=== PATIENT | male | born 1970 | race Caucasian/White ===

== ENCOUNTER 2019-01-06 10:19 | Emergency (ER) | payer BC ==
[2019-01-06] MEDS ORDERED: DIAZEPAM 10 MG/2 ML INJ SYRINGE ONE (10:59)
[2019-01-06 11:05] LABS: Absolute Lymphocytes (CBC) 3.3 K/uL (0.7-4.9); Absolute Neutrophil 7.3 K/uL (1.8-8.0); Basophils % 0.8 % (0-1.3); Eosinophils % 0.4 % (0-4.4); Hematocrit 52.3 % (39.6-49.0); Lymphocytes % 28.3 % (15.3-44.8); MPV 8.4 fL (7.6-11.3); Monocytes % 8.5 % (3.3-12.3); RBC Red Blood Cell Count 5.43 M/uL (4.33-5.43)
--- NOTE | 2019-01-06 11:05 | RAD REPORT ---
EXAM DESCRIPTION: CT - Head Brain Wo Cont - 01/06/2019 10:57 am CLINICAL HISTORY: CONFUSED Headache, drowsiness COMPARISON: No comparisons TECHNIQUE: All CT scans are performed using dose optimization technique as appropriate and may inclu de automated exposure control or mA/KV adjustment according to patient size. FINDINGS: No intracranial hemorrhage, hydrocephalus or extra-axial fluid collection.6 mm hypodensity seen in the left basal ganglia which is suspicious for a small lacunar infarct, age undetermined.No areas of brain edema or evidence of midline shift. The paranasal sinuses and mastoids are clear. The calvarium is intact. IMPRESSION: No acute intracranial abnormality. 6 mm hypodensity in the left basal ganglia is most compatible with a small lacunar infarct of undeter mined age. MR imaging of the brain could be obtained for further workup if clinically indicated.
[2019-01-06 11:08] LABS: Protime INR 1.03
--- NOTE | 2019-01-06 11:29 | RAD REPORT ---
EXAM DESCRIPTION: RAD - Chest Single View - 01/06/2019 11:20 am CLINICAL HISTORY: CONGESTION Chest pain. COMPARISON: Chest Single View dated 08/16/2017; CHEST PA AND LAT 2 VIEW dated 01/18/2012 FINDINGS: Portable technique limits examination quality. The lungs are grossly clear. The heart is normal in size. No displaced fractures. IMPRESSION: No acute intrathoracic process suspected.
[2019-01-06] MEDS ORDERED: NA CHLORIDE 0.9% 1,000 ML ONE (11:35)
--- NOTE | 2019-01-06 12:35 | EDPHYS ---
Physician Documentation [facility] Name: Patricio Pearson Age: 48 yrs Sex: Male : 1970 Arrival Date: 01/06/2019 Time: 10:22 Bed 4 Private MD: Tyrone Gonzalez E ED Physician Richard Ventura HPI: 01/06 10:53 This 48 yrs old Male presents to ER via Ambulatory with complaints of Altered ma2 Mental Status. 10:53 The patient presents with agitation, confusion. Onset: The symptoms/episode ma2 began/occurred gradually, 3 day(s) ago. Possible causes: benzodiazepine withdrawal . Associated signs and symptoms: Pertinent negatives: abdominal pain, blurred vision, confusion, diaphoresis. Current symptoms: In the emergency department the patient's symptoms are unchanged from the initial presentation. Historical: - Allergies: 10:25 No Known Allergies; sv - PMHx: 10:25 Anxiety; Kidney stones; sv - PSHx: 10:25 None; sv - Immunization history:: Adult Immunizations unknown. - Social history:: Patient uses xanax 3 times a day for anxiety for the last 18 months stopped 1 week ago \E\, Patient/guardian denies using alcohol, street drugs, IV drugs, The patient lives with family, Smoking status: Patient uses tobacco products, smokes one-half pack cigarettes per day. - Family history:: not pertinent. - Ebola Screening: : No symptoms or risks identified at this time. ROS: 10:53 Constitutional: Negative for fever, chills, and weight loss. ma2 10:53 Neuro: Positive for altered mental status, Negative for gait disturbance, loss of consciousness, numbness. 10:53 Psych: Positive for anxiety, Negative for alcohol dependence. 10:53 All other systems are negative. Exam: 10:53 Constitutional: This is a well developed, well nourished patient who is awake, alert, ma2 and in no acute distress. Head/Face: Normocephalic, atraumatic. Eyes: Pupils equal round and reactive to light, extra-ocular motions intact. Lids and lashes normal. Conjunctiva and sclera are non-icteric and not injected. Cornea within normal limits. Periorbital areas with no swelling, redness, or edema. ENT: Nares patent. No nasal discharge, no septal abnormalities noted. Tympanic membranes are normal and external auditory canals are clear. Oropharynx with no redness, swelling, or masses, exudates, or evidence of obstruction, uvula midline. Mucous membranes moist. Neck: Trachea midline, no thyromegaly or masses palpated, and no cervical lymphadenopathy. Supple, full range of motion without nuchal rigidity, or vertebral point tenderness. No Meningismus. Chest/axilla: Normal chest wall appearance and motion. Nontender with no deformity. No lesions are appreciated. Cardiovascular: Regular rate and rhythm with a normal S1 and S2. No gallops, murmurs, or rubs. Normal PMI, no JVD. No pulse deficits. Respiratory: Lungs have equal breath sounds bilaterally, clear to auscultation and percussion. No rales, rhonchi or wheezes noted. No increased work of breathing, no retractions or nasal flaring. Abdomen/GI: Soft, non-tender, with normal bowel sounds. No distension or tympany. No guarding or rebound. No evidence of tenderness throughout. Back: No spinal tenderness. No costovertebral tenderness. Full range of motion. Skin: Warm, dry with normal turgor. Normal color with no rashes, no lesions, and no evidence of cellulitis. MS/ Extremity: Pulses equal, no cyanosis. Neurovascular intact. Full, normal range of motion. 10:53 Neuro: Orientation: is normal, to person, place, time \T\ situation. Mentation: is normal, Cerebellar function: is grossly normal, oriented x 4 however inappropriate and confused restless and tachycardic . Vital Signs: 10:50 BP 130 / 104; Pulse 122; Resp 24; Pulse Ox 98% on R/A; ph 11:30 BP 112 / 99; Pulse 114; Resp 18; Pulse Ox 99% on R/A; ph 11:49 BP 144 / 107; Pulse 78; Resp 20; Pulse Ox 99% on R/A; ph 13:01 BP 149 / 98; Pulse 74; Resp 18; Temp 98.0; Pulse Ox 99% on R/A; ph MDM: 10:26 Patient medically screened. ma2 10:53 Differential Diagnosis: electrolyte abnormality, hypoglycemia, intracranial bleed, ma2 volume depletion, likely xanax withdrawal . 12:32 Data reviewed: vital signs, nurses notes. Counseling: I had a detailed discussion with ma2 the patient and/or guardian regarding: the historical points, exam findings, and any diagnostic results supporting the discharge/admit diagnosis, the presence of at least one elevated blood pressure reading (>120/80) during this emergency department visit, the need for outpatient follow up. Response to treatment: the patient's symptoms have resolved after treatment. ED course: patient is now ao x 4 his pulse is back ot 60 he is back to normal has no tremor, his earlier symptoms were likely d/t xanax withdrawal delirium, he want to go home will give him valium to wean him off xanax and prescribe and new anxiety medicine . 01/06 10:29 Order name: Urine Culture [facility] 01/06 10:29 Order name: C-Reactive Protein [facility] 01/06 10:29 Order name: Basic Metabolic Panel [facility] 01/06 10:29 Order name: Blood Culture Adult (2) [facility] 01/06 10:29 Order name: CBC with Diff [facility] 01/06 10:29 Order name: Ckmb [facility] 01/06 10:29 Order name: CPK [facility] 01/06 10:29 Order name: Lactate; Complete Time: 12:37 [facility] 01/06 10:29 Order name: LFT's [facility] 01/06 10:29 Order name: Lipase [facility] 01/06 10:29 Order name: Procalcitonin [facility] 01/06 10:29 Order name: Protime (+inr); Complete Time: 12:00 [facility] 01/06 10:29 Order name: Ptt, Activated; Complete Time: 12:00 [facility] 01/06 10:29 Order name: Troponin (emerg Dept Use Only) [facility] 01/06 10:29 Order name: Chest Single View XRAY; Complete Time: 12:00 [facility] 01/06 10:29 Order name: Accucheck; Complete Time: 11:07 [facility] 01/06 10:29 Order name: Cardiac monitoring; Complete Time: 11: [facility] 01/06 10:29 Order name: EKG - Nurse/Tech; Complete Time: 11:07 [facility] 01/06 10:29 Order name: CT Head Brain wo Cont; Complete Time: 12:00 [facility] 01/06 10:30 Order name: C-Reactive Protein [facility] 01/06 10:30 Order name: Basic Metabolic Panel [facility] 01/06 10:30 Order name: Blood Culture [facility] 01/06 10:30 Order name: CBC with Automated Diff; Complete Time: 12:00 [facility] 01/06 10:30 Order name: CKMB Creatine Kinase MB [facility] 01/06 10:30 Order name: Creatine Phosphokinase [facility] 01/06 11:31 Order name: Glucose, Ancillary Testing [facility] 01/06 10:29 Order name: IV Saline Lock - Large Bore; Complete Time: 11:07 [facility] 01/06 10:29 Order name: Labs collected and sent; Complete Time: 11:07 [facility] 01/06 10:29 Order name: O2 Per Protocol; Complete Time: 11: [facility] 01/06 10:29 Order name: O2 Sat Monitoring; Complete Time: 11: [facility] Administered Medications: 10:55 Drug: Valium 10 mg Route: IVP; Site: right antecubital; ph 11:30 Follow up: Response: No adverse reaction; Marked relief of symptoms ph 11:45 Drug: NS 0.9% 1000 ml Route: IV; Rate: 1000 ml; Site: right antecubital; ph 13:03 Follow up: Response: No adverse reaction; IV Status: Completed infusion ph Disposition: 01/06/19 12:34 Discharged to Home. Impression: Anxiety disorder, unspecified, Underdosing of benzodiazepines. - Condition is Stable. - Discharge Instructions: Generalized Anxiety Disorder. - Prescriptions for buspirone 5 mg Oral tablet - take 1 tablet by ORAL route 3 times per day; 60 tablet. Valium 5 mg Oral Tablet - take 1 tablet by ORAL route every 8 hours As needed; 20 tablet. - Work release form, Medication Reconciliation Form, Thank You Letter, Antibiotic Education, Prescription Opioid Use form. - Follow up: Private Physician; When: Tomorrow; Reason: Continuance of care. Signatures: [facility] Sheron Pabon RN RN sv Hall, Patricia, RN RN Richard Ventura MD MD ma2 Corrections: (The following items were deleted from the chart) 13:03 12:34 01/06/2019 12:34 Discharged to Home. Impression: Anxiety disorder, unspecified; ph Underdosing of benzodiazepines. Condition is Stable. Forms are Medication Reconciliation Form, Thank You Letter, Antibiotic Education, Prescription Opioid Use. Follow up: Private Physician; When: Tomorrow; Reason: Continuance of care. ma2
--- NOTE | 2019-01-06 12:35 | ER ---
Nurse's Notes [facility] Name: Patricio Pearson Age: 48 yrs Sex: Male : 1970 Arrival Date: 01/06/2019 Time: 10:22 Bed 4 Private MD: Tyrone Gonzalez E Diagnosis: Anxiety disorder, unspecified;Underdosing of benzodiazepines Presentation: 01/06 10:24 Presenting complaint: Brother stated that he works with him and he is altered. He is sv walking to the side and "not acting right.". Transition of care: patient was not received from another setting of care. Onset of symptoms is unknown. Care prior to arrival: None. 10:24 Method Of Arrival: Ambulatory sv 10:24 Acuity: GREG 2 sv 11:46 Risk Assessment: Do you want to hurt yourself or someone else? Patient reports no ph desire to harm self or others. Initial Sepsis Screen: Does the patient meet any 2 criteria? No. Patient's initial sepsis screen is negative. Does the patient have a suspected source of infection? No. Patient's initial sepsis screen is negative. Historical: - Allergies: 10:25 No Known Allergies; sv - PMHx: 10:25 Anxiety; Kidney stones; sv - PSHx: 10:25 None; sv - Immunization history:: Adult Immunizations unknown. - Social history:: Patient uses xanax 3 times a day for anxiety for the last 18 months stopped 1 week ago \\E\\, Patient/guardian denies using alcohol, street drugs, IV drugs, The patient lives with family, Smoking status: Patient uses tobacco products, smokes one-half pack cigarettes per day. - Family history:: not pertinent. - Ebola Screening: : No symptoms or risks identified at this time. Screenin:45 Abuse screen: Denies threats or abuse. Denies injuries from another. Nutritional ph screening: No deficits noted. Tuberculosis screening: No symptoms or risk factors identified. Fall Risk None identified. Assessment: 10:30 General: Appears distressed, uncomfortable, slender, Behavior is cooperative, anxious, ph restless. Pain: Denies pain. Neuro: Level of Consciousness is awake, obeys commands, Oriented to person, place, Moves all extremities. Gait is unsteady, Speech is slurred, tremors noted to petra arms. 10:30 Cardiovascular: Capillary refill < 3 seconds in bilateral fingers Patient's skin is ph warm and dry. Respiratory: Airway is patent Respiratory effort is even, unlabored, Respiratory pattern is regular, tachypnea. GI: No signs and/or symptoms were reported involving the gastrointestinal system. Patient currently denies abdominal pain, diarrhea, nausea, vomiting. Derm: Skin is intact, Skin is pink, warm \\T\\ dry. Musculoskeletal: Circulation, motion, and sensation intact. Range of motion: intact in all extremities. 11:00 Reassessment: Patient appears in no apparent distress at this time. Patient is alert, ph oriented x 3, equal unlabored respirations, skin warm/dry/pink. Pt medicated prior to CT, tremors and difficulty speaking noted to improved considerably. 11:50 Reassessment: Patient appears in no apparent distress at this time. Patient and/or ph family updated on plan of care and expected duration. Pain level reassessed. Patient is alert, oriented x 3, equal unlabored respirations, skin warm/dry/pink. 13:00 Reassessment: Patient appears in no apparent distress at this time. Patient and/or ph family updated on plan of care and expected duration. Pain level reassessed. Patient is alert, oriented x 3, equal unlabored respirations, skin warm/dry/pink. Pt d/c home w/ prescription for valium, instructed to follow up w/ PCP. Vital Signs: 10:50 BP 130 / 104; Pulse 122; Resp 24; Pulse Ox 98% on R/A; ph 11:30 BP 112 / 99; Pulse 114; Resp 18; Pulse Ox 99% on R/A; ph 11:49 BP 144 / 107; Pulse 78; Resp 20; Pulse Ox 99% on R/A; ph 13:01 BP 149 / 98; Pulse 74; Resp 18; Temp 98.0; Pulse Ox 99% on R/A; ph ED Course: 10:22 Patient arrived in ED. mr 10:22 Tyrone Gonzalez MD is Private Physician. mr 10:25 Triage completed. sv 10:26 Lisy Lira, RN is Primary Nurse. iw 10:26 Richard Ventura MD is Attending Physician. ma2 10:49 EKG done, by turbine technician. reviewed by Richard Ventura MD. at1 10:50 Inserted saline lock: 20 gauge in right antecubital area, using aseptic technique. ph 10:58 CT Head Brain wo Cont In Process Unspecified. EDMS 11:10 X-ray completed. Portable x-ray completed in exam room. Patient tolerated procedure jr1 well. 11:12 Chest Single View XRAY In Process Unspecified. EDMS 11:45 Patient has correct armband on for positive identification. Placed in gown. Bed in low ph position. Call light in reach. Side rails up X2. gambling monitor on. Pulse ox on. NIBP on. Warm blanket given. 11:46 Arm band placed on. ph 11:52 Primary Nurse role handed off by Lisy Lira, RN ph 11:52 Edie Terrell, RN is Primary Nurse. ph 13:01 No provider procedures requiring assistance completed. IV discontinued, intact, ph bleeding controlled, No redness/swelling at site. Pressure dressing applied. Administered Medications: 10:55 Drug: Valium 10 mg Route: IVP; Site: right antecubital; ph 11:30 Follow up: Response: No adverse reaction; Marked relief of symptoms ph 11:45 Drug: NS 0.9% 1000 ml Route: IV; Rate: 1000 ml; Site: right antecubital; ph 13:03 Follow up: Response: No adverse reaction; IV Status: Completed infusion ph Outcome: 12:34 Discharge ordered by MD. durham 13:02 Discharged to home ambulatory. ph 13:02 Condition: improved 13:02 Discharge instructions given to patient, Instructed on discharge instructions, follow up and referral plans. medication usage, Demonstrated understanding of instructions, follow-up care, medications, Prescriptions given X 2. 13:03 Patient left the ED. ph Signatures: Dispatcher [employer] [facility] Sheron Pabon, RN DEBBIE FarmerOfelia Jennifer jr1 Lisy Lira, DEBBIE LEWIS Rose [place]mond[place], sales promotion representative EKG Tat1 Edie Terrell RN RN Richard Ventura MD MD ma2 Corrections: (The following items were deleted from the chart) 12:33 10:30 Neuro: Level of Consciousness is awake, obeys commands, Oriented to person, ph place, Moves all extremities. Gait is unsteady, Speech is slurred, . ph
[2019-01-06 12:57] LABS: ALT/SGPT 47 U/L (12-78); AST/SGOT 28 U/L (15-37); Albumin 4.1 g/dL (3.4-5.0); Alkaline Phosphatase 118 U/L (45-117); BUN Blood Urea Nitrogen 14 mg/dL (7-18); Bicarbonate 22 mmol/L (21-32); Bilirubin Direct 0.1 mg/dL (0-0.2); Bilirubin Total 0.7 mg/dL (0.2-1.0); C-Reactive Protein < 2.90 mg/L (<3.00); Creatine Phosphokinase 53 U/L (39-308); Glucose Level 128 mg/dL (74-106); Lipase 73 U/L (73-393); Potassium 3.9 mmol/L (3.5-5.1); Protein, Total 7.6 g/dL (6.4-8.2); Sodium Level 139 mmol/L (136-145); Troponin (Emerg Dept Use Only) < 0.02 ng/mL (0.0-0.045)
[2019-01-06 13:10] VITALS: O2SAT 99
[2019-01-06 13:12] VITALS: BP 149/98; TEMP 98
--- NOTE | 2019-01-07 07:48 | EKG ---
Test Date: 2019-01-06 Test Time: 10:41:53 Senior Java Web Developer: FREDDY MEASUREMENT RESULTS: Intervals: Rate: 110 IA: 114 QRSD: 68 QT: 320 QTc: 433 [place]: P: 81 IA: 114 QRS: 85 T: 74 INTERPRETIVE STATEMENTS: Sinus tachycardia Otherwise normal ECG Compared to ECG 08/17/2017 07:55:27 Sinus rhythm no longer present Electronically Signed On 01-07-19 07:47:48 CDT by Davis Nance
== END 2019-01-06 13:03 | disposition home or self-care (01) ==
LOC: ER 10:19
DX: F41.9 Anxiety disorder, unspecified (principal); T42.4X6A Underdosing of benzodiazepines, initial encounter; Y92.9 Unspecified place or not applicable; Z72.0 Tobacco use; F17.210 Nicotine dependence, cigarettes, uncomplicated
CPT/HCPCS: 36415; 70450; 71045; 80048; 80076; 82550; 82553; 82962; 83605; 83690; 84145; 84484; 85025; 85610; 85730; 86140; 87040; 93005; 96361; 96374; 99284; J3360; J7030

== ENCOUNTER 2021-11-16 10:48 | Emergency (ER) | payer BC ==
--- OUTSIDE RECORDS SUMMARY | 2021-11-16 10:51 | XMS REPORT | Continuity of Care Document ---
:1970 [facility] t Address [address] [place] [address] Care Team Providers Name Role Phone Lisa E Primary Care Physician DERICK Attending Clinician Unavailable Doctor Unassigned, Name Attending Clinician Unavailable Lolis LEWIS Attending Clinician Unavailable Only, Db Test Attending Clinician Unavailable Markus HARRINGTON Attending Clinician MARKUS Attending Clinician Unavailable Frank LEWIS, T Attending Clinician Unavailable Didi PERSAUD, J Attending Clinician Shelly TOLBERT Attending Clinician Unavailable Provider, Db Urgent Care Attending Clinician Unavailable MARTINE Attending Clinician Unavailable Rc HUANG Attending Clinician Unavailable Nancie CARDONA Attending Clinician Unavailable BEATRIZ Attending Clinician Unavailable DERICK Admitting Clinician Unavailable BEATRIZ Admitting Clinician Unavailable Payers Payer Name Policy Type Policy Number Effective Date Expiration Date Beth wilson [facility] [id number] 2017 00:00:00 Problems Condition Condition Condition Status Onset Resolution Last Treating Co mments Source Name Details Category Date Date Treatment Clinician Date Infection Infection Disease Active 2020- Uni vers 8-25 ity of 00:00: [address] Blister of Blister of Disease Active 2020- U nivers groin with groin with 8-21 it y of infection [place] [address] [place] [address] Critical Critical Disease Active 2019- Unive rs lower limb lower limb 8-04 it y of ischemia ischemia 00:00: [address] Pain of Pain of Disease Active 2019 Overview: Univ ers lower lower 8-04 Formatt[place] ity of extremity, extremity, 00:00: g of this [place] unspecifie unspecifie 00 note Me dical d d might be Branch laterality laterality different from the original. Added automatic ally from request for surgery [id number] Allergies, Adverse Reactions, Alerts Allergy Allergy Status Severity Reaction(s) Onset Inactive Treating Comm ents Source Name Type Date Date Clinician NO KNOWN Drug Active Univers ALLERGIE Class ity of S [place] [facility] Social History Social Habit Start Date Stop Date Quantity Comments Source Exposure to Not sure [facility] SARS-CoV-2 (event) Medica l Branch Tobacco use and 2019-09-21 2019-09-21 Never used [facility] exposure 00:00:00 00:00:00 Medical Branch Sex [birth year] [facility] 00:00:00 00:00:00 Medical Branch Smoking Status Start Date Stop Date Source Current every day smoker 2019-09-21 00:00[facility]00 [facility] Medications Ordered Filled Start Stop Current Ordering Indication Dosage Frequency Signature Comments Components Source Medication Medication Date Date Medication? Clinician (SIG) Name Name atorvastati 2020-0 Yes 40mg Take 1 Univ ers n 40 mg 9-28 tablet by ity of tablet 00:00: mouth at [place] [address] bedtime. Medical Branch metoprolol 2020-0 Yes [id number] 50mg Take 1 U nivers tartrate 50 9-28 tablet by ity of mg tablet 00:00: mouth 2 [place] (two) Medical times Branch daily. atorvastati 2020-0 Yes 40mg Take 1 Univ ers n 40 mg 9-28 tablet by ity of tablet 00:00: mouth at [place] [address] bedtime. Medical Branch metoprolol 2020-0 Yes [id number] 50mg Take 1 U nivers tartrate 50 9-28 tablet by ity of mg tablet 00:00: mouth 2 [place] (two) Medical times Branch daily. atorvastati 2020-0 Yes 40mg Take 1 Univ ers n 40 mg 9-28 tablet by ity of tablet 00:00: mouth at [place] [address] bedtime. Medical Branch metoprolol 2020-0 Yes [id number] 50mg Take 1 U nivers tartrate 50 9-28 tablet by ity of mg tablet 00:00: mouth 2 [place] (two) Medical times Branch daily. atorvastati 2020-0 Yes 40mg Take 1 Univ ers n 40 mg 9-28 tablet by ity of tablet 00:00: mouth at [place] 00 bedtime. Medical Branch metoprolol 2020-0 Yes [id number] 50mg Take 1 U nivers tartrate 50 9-28 tablet by ity of mg tablet 00:00: mouth 2 (two) Medical times Branch daily. atorvastati 2020-0 Yes 40mg Take 1 Univ ers n 40 mg 9-28 tablet by ity of tablet 00:00: mouth at [place] 00 bedtime. Medical Branch metoprolol 2020-0 Yes [id number] 50mg Take 1 U nivers tartrate 50 9-28 tablet by ity of mg tablet 00:00: mouth 2 (two) Medical times Branch daily. atorvastati 2020-0 Yes 40mg Take 1 Univ ers n 40 mg 9-28 tablet by ity of tablet 00:00: mouth at [place] bedtime. Medical Branch metoprolol 2020-0 Yes [id number] 50mg Take 1 U nivers tartrate 50 9-28 tablet by ity of mg tablet 00:00: mouth 2 (two) Medical times Branch daily. atorvastati 2020-0 Yes 40mg Take 1 Univ ers n 40 mg 9-28 tablet by ity of tablet 00:00: mouth at [place] bedtime. Medical Branch metoprolol 2020-0 Yes [id number] 50mg Take 1 U nivers tartrate 50 9-28 tablet by ity of mg tablet 00:00: mouth 2 (two) Medical times Branch daily. atorvastati 2020-0 Yes 40mg Take 1 Univ ers n 40 mg 9-28 tablet by ity of tablet 00:00: mouth at [place] bedtime. Medical Branch metoprolol 2020-0 Yes [id number] 50mg Take 1 U nivers tartrate 50 9-28 tablet by ity of mg tablet 00:00: mouth 2 (two) Medical times Branch daily. gabapentin 2020-0 Yes [id number] 200mg Take 2 Univers 100 mg 9-10 capsules ity of capsule 00:00: [place] Medical times Branch daily. gabapentin 2020-0 Yes [id number] 200mg Take 2 Univers 100 mg 9-10 capsules ity of capsule 00:00[place] Medical times Branch daily. gabapentin 2020-0 Yes [id number] 200mg Take 2 Univers 100 mg 9-10 capsules ity of capsule 00:00: [place]three[place] Medical times Branch daily. gabapentin 2020-0 Yes [id number] 200mg Take 2 Univers 100 mg 9-10 capsules ity of capsule 00:00: [place] ([place] Medical times Branch daily. gabapentin 2020-0 Yes [id number] 200mg Take 2 Univers 100 mg 9-10 capsules ity of capsule 00:00: [place] Medical times Branch daily. gabapentin 2020-0 Yes [id number] 200mg Take 2 Univers 100 mg 9-10 capsules ity of capsule 00:00: [place] ([place] Medical times Branch daily. gabapentin 2020-0 Yes [id number] 200mg Take 2 Univers 100 mg 9-10 capsules ity of capsule 00:00: [place] Medical times Branch daily. gabapentin 2020-0 Yes [id number] 200mg Take 2 Univers 100 mg 9-10 capsules ity of capsule 00:00: [place] (three[place] Medical times Branch daily. aspirin 81 2020-0 Yes 81mg Take 81 mg U nivers mg chewable 8-25 by mouth ity of tablet 11:30: daily. [address] aspirin 81 2020-0 Yes 81mg Take 81 mg U nivers mg chewable 8-25 by mouth ity of tablet 11:30: daily. [address] aspirin 81 2020-0 Yes 81mg Take 81 mg U nivers mg chewable 8-25 by mouth ity of tablet 11:30: daily. [address] aspirin 81 2020-0 Yes 81mg Take 81 mg U nivers mg chewable 8-25 by mouth ity of tablet 11:30: daily. [address] aspirin 81 2020-0 Yes 81mg Take 81 mg U nivers mg chewable 8-25 by mouth ity of tablet 11:30: daily. [address] aspirin 81 2020-0 Yes 81mg Take 81 mg U nivers mg chewable 8-25 by mouth ity of tablet 11:30: daily. [address] aspirin 81 2020-0 Yes 81mg Take 81 mg U nivers mg chewable 8-25 by mouth ity of tablet 11:30: daily. [place] [address] Medical Branch aspirin 81 2020-0 Yes 81mg Take 81 mg U nivers mg chewable 8-25 by mouth ity of tablet 11:30: daily. [address] Branch cilostazoL 2020-0 Yes [id number] 50mg Take 1 Univers 50 mg 7-01 tablet by ity of tablet 00:00: mouth [place] (two) Medical times Branch daily. cilostazoL 2020-0 Yes [id number] 50mg Take 1 Univers 50 mg 7-01 tablet by ity of tablet 00:00: mouth (two) Medical times Branch daily. cilostazoL 2020-0 Yes [id number] 50mg Take 1 Univers 50 mg 7-01 tablet by ity of tablet 00:00: mouth [place] ([facility]) Medical times Branch daily. cilostazoL 2020-0 Yes [id number] 50mg Take 1 Univers 50 mg 7-01 tablet by ity of tablet 00:00: mouth [place] ([facility]) Medical times Branch daily. cilostazoL 2020-0 Yes [id number] 50mg Take 1 Univers 50 mg 7-01 tablet by ity of tablet 00:00: mouth [place] ([facility]) Medical times Branch daily. cilostazoL 2020-0 Yes [id number] 50mg Take 1 Univers 50 mg 7-01 tablet by ity of tablet 00:00: mouth [place] ([facility]) Medical times Branch daily. cilostazoL 2020-0 Yes [id number] 50mg Take 1 Univers 50 mg 7-01 tablet by ity of tablet 00:00: mouth [place] ([facility]) Medical times Branch daily. cilostazoL 2020-0 Yes [id number] 50mg Take 1 Univers 50 mg 7-01 tablet by ity of tablet 00:00: mouth [place] (two) Medical times Branch daily. hydrOXYzine 2020-0 Yes [id number] 10mg Take 1 Univers 10 mg 3-04 tablet by ity of tablet 00:00: mouth [place] 00 every 6 Medical (six) Branch hours. hydrOXYzine 2020-0 Yes [id number] 10mg Take 1 Univers 10 mg 3-04 tablet by ity of tablet 00:00: mouth [place] 00 every 6 Medical (six) Branch hours. hydrOXYzine 2020-0 Yes [id number] 10mg Take 1 Univers 10 mg 3-04 tablet by ity of tablet 00:00: mouth [place] 00 every 6 Medical (six) Branch hours. hydrOXYzine 2020-0 Yes [id number] 10mg Take 1 Univers 10 mg 3-04 tablet by ity of tablet 00:00: mouth [place] 00 every 6 Medical (six) Branch hours. hydrOXYzine 2020-0 Yes [id number] 10mg Take 1 Univers 10 mg 3-04 tablet by ity of tablet 00:00: mouth [place] 00 every 6 Medical (six) Branch hours. hydrOXYzine 2020-0 Yes [id number] 10mg Take 1 Univers 10 mg 3-04 tablet by ity of tablet 00:00: mouth [place] 00 every 6 Medical (six) Branch hours. hydrOXYzine 2020-0 Yes [id number] 10mg Take 1 Univers 10 mg 3-04 tablet by ity of tablet 00:00: mouth [place] 00 every 6 Medical (six) Branch hours. hydrOXYzine 2020-0 Yes [id number] 10mg Take 1 Univers 10 mg 3-04 tablet by ity of tablet 00:00: mouth [place] 00 every 6 Medical (six) Branch hours. clopidogrel 2019-0 Yes [id number] 75mg Take 1 Univers 75 mg 8-07 tablet by ity of tablet 00:00: mouth [place] 00 daily. Medical Branch clopidogrel 2019-0 Yes [id number] 75mg Take 1 Univers 75 mg 8-07 tablet by ity of tablet 00:00: mouth [place] 00 daily. Medical Branch clopidogrel 2019-0 Yes [id number] 75mg Take 1 Univers 75 mg 8-07 tablet by ity of tablet 00:00: mouth [place] 00 daily. Medical Branch clopidogrel 2019-0 Yes [id number] 75mg Take 1 Univers 75 mg 8-07 tablet by ity of tablet 00:00: mouth [place] 00 daily. Medical Branch clopidogrel 2019-0 Yes [id number] 75mg Take 1 Univers 75 mg 8-07 tablet by ity of tablet 00:00: mouth [place] 00 daily. Medical Branch clopidogrel 2019-0 Yes [id number] 75mg Take 1 Univers 75 mg 8-07 tablet by ity of tablet 00:00: mouth [place] 00 daily. Medical Branch clopidogrel 2019-0 Yes [id number] 75mg Take 1 Univers 75 mg 8-07 tablet by ity of tablet 00:00: mouth [place] 00 daily. Medical Branch clopidogrel 2019-0 Yes [id number] 75mg Take 1 Univers 75 mg 8-07 tablet by ity of tablet 00:00: mouth [place] 00 daily. Medical Harts Procedures Procedure Date / Time Performed Performing Clinician [facility] e EXTERNAL PROVIDER - 2021-09-22 06:01:00 Doctor Kathleen, Majo Un [facility] REFERRAL Name [facility] Encounters Start End Encounter Admission Attending Care Care Encounter Source Date/Time Date/Time Type Type Clinicians Facility Department ID 2021-08-20 Emergency [facility] [id number] Univers 19:26:59 ity of [facility] 2021-08-20 Emergency [facility] [id number] Univers 03:47:58 ity of [facility] 2021-08-18 Emergency [facility] [id number] Univers 13:57:16 ity of [facility] 2021-08-18 Inpatient DERICK [facility] [id number] Univers 04:30:05 MEENAKSHI ity of [facility] 2021-08-18 Emergency [facility] [id number] Univers 03:58:16 ity of [facility] 2021-08-17 Emergency [facility] [id number] Univers 12:33:39 ity of [facility] 2021-09-22 2021-09-22 Orders Doctor LUISANA [id number] Univers 00:00:00 00:00:00 Only Unassigned, AUGUSTINE [id number] ity of [place] [facility] [id number] Gabriel as [phone] [facility] 009 Harts 2021-07-25 2021-07-25 Telephone Kristin Danielle [id number] Univers 00:00:00 00:00:00 AUGUSTINE [id number] it y of HOSPITAL [id number] Gabriel as [phone] [facility] 019 Harts 2021-07-24 2021-07-24 Laboratory Only, Ang Db Test [facility] 1.2.8 40.114 [id number] Univers 11:56:54 12:11:54 Only Ephraim Aparicio [facility] [id number] ity of [place] [id number] Gabriel as Shaheed?Blea [id number] Fl jenny[address] Medical Office Building 2021-07-24 2021-07-24 Outpatient R [facility] [id number] Univers 12:00:00 12:00:[id number] [facility] 2021-07-24 2021-07-24 [facility] [id number] Univers 12:00:00 12:00:[address] [facility] 2021-07-20 2021-07-20 Letter LUISANA Marie [id number] Univers 00:00:00 00:00:00 (Out) Yakelin BRADSHAW [id number] it y of HOSPITAL [id number] Gabriel as [id number] [address] 2021-07-18 2021-07-18 Laboratory Only, Ang Db Test [facility] 1.2.8 40.114 [id number] Univers 14:38:42 14:53:42 Only Ber[facility] [id number] ity of [place] [id number] Gabriel as Shaheed?Blea [id number] [address] Medical Office Building 2021-07-18 2021-07-18 Outpatient R [facility] [id number] Univers 14:45:00 14:45:[id number] [facility] 2021-07-18 2021-07-18 [facility] [id number] Univers 14:45:00 14:45:00 BERONICA cintron o f [facility] 2021-07-18 2021-07-18 Letter Suma [facility] .[id number] Univers 00:00:00 00:00:00 (Out) Ang Db Health [id number] it y of [facility] [place] [id number] [place] Shaheed?Blea [id number] [address] Medical Office Building 2021-07-12 2021-07-12 [facility]phone [facility] [id number] Univers 00:00:00 00:00:00 [facility] 350.1.13.10 it y of [place] [id number] Gabriel as Shaheed?Blea [phone] Fl dic[address] Medical Office [facility] 2021-07-11 2021-07-11 Outpatient R [facility] [id number] Univers 12:45:00 12:45:[id number] [facility] 2021-07-11 2021-07-11 Outpatient R [facility] [id number] Univers 12:45:00 12:45[facility]-11 2021-07-11 Laboratory Only, Ang Db Test [facility] 1.2.8 40.114 [id number] Univers 12:20:09 12:35:09 Only [facility].1.13.10 [facility] 4.2.7.2.686 Gabriel as Shaheed?Blea [id number] [address] Medical Office [facility] 2020-10-17 2020-10-17 Outpatient MARTINE, [facility] [id number] Univers 13:00:00 13:00:00 HERMILA [id number] braulioy o [facility] 2020-10-17 2020-10-17 Outpatient R MARTINE, [facility] [id number] Univers 13:00:00 13:00:00 HERMILA ramseyy o [facility] 2020-09-30 2020-09-30 Outpatient R DERICK, [facility] [id number] Univers 09:00:00 09:00:00 MEENAKSHI [id number] braulioy o [facility] 2020-07-26 2020-07-26 Outpatient R [facility] [id number] Univers 16:00:00 16:00:00 [id number] [facility] 2020-07-26 2020-07-26 Outpatient R HUANG, [facility] [id number] Univers 16:00:00 16:00:00 SENDIL [facility] 2020-07-18 2020-07-18 Outpatient R MARTINE, [facility] [id number] Univers 11:20:00 11:20:00 HERMILA [id number] braulioy o [facility] 2020-07-18 2020-07-18 Outpatient R MARTINE, [facility] [id number] Univers 11:20:00 11:20:00 HERMILA cintron o [facility] 2020-06-30 2020-06-30 Outpatient R DERICK, [facility] [id number] Univers 08:45:00 08:45:00 MEENAKSHI saida o jaqui [facility] 2020-06-30 2020-06-30 Outpatient R DERICK, [facility] [id number] Univers 08:45:00 08:45:00 MEENAKSHI ramseymary o jaqui [facility] 2020-06-14 2020-06-14 Outpatient R [facility] [id number] Univers 14:00:00 14:00:[id number] [facility] 2020-06-10 2020-06-10 Outpatient R GRAMM, [facility] [id number] Univers 14:00:00 14:00:[address] [facility] 2020-06-10 2020-06-10 Outpatient R DERICK, [facility] [id number] Univers 08:00:00 08:00:00 MEENAKSHI [id number] brauliomary o [facility] 2020-06-10 2020-06-10 Outpatient R DERICK, [facility] [id number] Univers 08:00:00 08:00:00 MEENAKSHI ramseymary o f [facility] 2020-06-02 2020-06-02 Outpatient R DERICK, [facility] [id number] Univers 09:30:00 09:30:00 MEENAKSHI [id number] brauliomary o f [facility] 2020-05-27 2020-05-27 Outpatient R DERICK, [facility] [id number] Univers 09:15:00 09:15:00 MEENAKSHI brauliomary o f [facility] 2020-05-27 2020-05-27 Outpatient R DERICK, [facility] [id number] Univers 09:15:00 09:15:00 MEENAKSHI ramseymary o f [facility] 2020-05-12 2020-05-12 Outpatient R DERICK, [facility] [id number] Univers 09:30:00 09:30:00 MEENAKSHI cintron o jaqui [facility] 2020-04-22 2020-04-22 Outpatient DERICK, [facility] [id number] Univers 09:00:00 09:00:00 MEENAKSHI saida nails [facility] 2020-04-22 2020-04-22 Outpatient R DERICK [facility] [id number] Univers 09:00:00 09:00:00 MEENAKSHI nails [facility] 2020-03-18 2020-03-18 Outpatient R DERICK [facility] [id number] Univers 08:00:00 08:00:00 MEENAKSHI [id number] saida nails [facility] 2020-03-18 2020-03-18 Outpatient R DERICK [facility] [id number] Univers 08:00:00 08:00:00 MEENAKSHI nails [facility] 2020-03-11 2020-03-11 Outpatient R [facility] [id number] Univers 14:00:00 14:00:00 [id number] [facility] 2020-03-11 2020-03-11 Outpatient R HUANG, [facility] [id number] Univers 14:00:00 14:00:00 SENDIL [facility] 2020-03-04 2020-03-04 Outpatient R DERICK [facility] [id number] Univers 09:45:00 09:45:00 MEENAKSHI [id number] saida nails [facility] 2020-03-04 2020-03-04 Outpatient R DERICK [facility] [id number] Univers 09:45:00 09:45:00 MEENAKSHIISRAEL nails [facility] 2020-02-22 2020-02-22 Outpatient R [facility] [id number] Univers 13:00:00 13:00:00 [facility] 2020-02-22 2020-02-22 Outpatient R REINA [facility] [id number] Univers 13:00:00 13:00:00 SENDIL [facility] 2019-12-17 2019-12-17 Outpatient R DERICK [facility] [id number] Univers 08:15:00 08:15:00 MEENAKSHIISRAEL nails [facility] 2019-09-20 2019-09-20 Emergency X HENDERSON, [facility] ERT [id number] Univers 13:45:47 17:01:00 GO [facility] Results This patient has no known results.
[2021-11-16] MEDS ORDERED: LORazepam 2 MG/ML VIAL ONE (11:23)
[2021-11-16 11:30] LABS: Absolute Lymphocytes (CBC) 3.2 K/uL (0.7-4.9); Hematocrit 44.7 % (39.6-49.0); Lymphocytes % 25.8 % (15.3-44.8); MPV 8.5 fL (7.6-11.3); RBC Red Blood Cell Count 4.56 M/uL (4.33-5.43)
--- NOTE | 2021-11-16 11:33 | RAD REPORT ---
EXAM DESCRIPTION: RAD - Chest Single View - 11/16/2021 11:24 am CLINICAL HISTORY: CHEST PAIN COMPARISON: Portable December 2018 TECHNIQUE: AP portable chest image was obtained 11/16/2021 11:24 am . FINDINGS: Lungs are clear. Heart and vasculature are normal. No measurable pleural effusion and no p neumothorax. No acute bony abnormality seen. No acute aortic findings suspected. IMPRESSION: No acute cardiopulmonary process. No significant change from comparison study.
[2021-11-16 11:35] LABS: Protime INR 1.06
[2021-11-16 12:07] LABS: Albumin 4.3 g/dL (3.4-5.0); Bilirubin Direct 0.2 mg/dL (0-0.2); Bilirubin Total 0.8 mg/dL (0.2-1.0); Magnesium 2.2 mg/dL (1.8-2.4); Potassium 3.1 mmol/L (3.5-5.1); Protein, Total 7.5 g/dL (6.4-8.2); Troponin High Sensitivity 8.5 pg/mL (<58.9)
--- NOTE | 2021-11-16 13:02 | EDPHYS ---
Physician Documentation [facility] Name: Patricio Pearson Age: 51 yrs Sex: Male : 1970 Arrival Date: 11/16/2021 Time: 10:49 Bed 8 Private MD: Melisa Haji K ED Physician Bob Myers HPI: 11/16 14:31 This 51 yrs old Male presents to ER via Wheelchair with complaints of Chest Pain, kdr Shortness Of Breath, Blurred Vision, shaky. 14:31 The patient or guardian reports chest pain that is located primarily in the substernal kdr area, anterior chest wall, bilaterally. Onset: suddenly, this morning. Severity of pain: At its worst the pain was mild in the emergency department the pain is unchanged. The patient has experienced a previous episode. The patient presents with chest pain shortness of breath along with dizziness and feeling faint for a few hours. Historical: - Home Meds: 10:56 Xanax 2 mg Oral tab 1 tab 3 times per day [Active]; ic1 - PMHx: 10:56 Anxiety; Kidney stones; ic1 - Social history:: Smoking status: Patient reports the use of cigarette tobacco products, smokes one pack cigarettes per day. ROS: 14:31 Constitutional: Negative for fever, chills, and weight loss, Eyes: Negative for injury, kdr pain, redness, and discharge, Neck: Negative for injury, pain, and swelling, Respiratory: Negative for shortness of breath, cough, wheezing, and pleuritic chest pain, Abdomen/GI: Negative for abdominal pain, nausea, vomiting, diarrhea, and constipation, Back: Negative for injury and pain, : Negative for injury, bleeding, discharge, and swelling, MS/Extremity: Negative for injury and deformity. 14:31 Cardiovascular: Positive for chest pain, edema, Negative for orthopnea, palpitations. Exam: 14:31 Constitutional: This is a well developed, well nourished patient who is awake, alert, kdr and in no acute distress. Head/Face: Normocephalic, atraumatic. Eyes: Pupils equal round and reactive to light, extra-ocular motions intact. Lids and lashes normal. Conjunctiva and sclera are non-icteric and not injected. Cornea within normal limits. Periorbital areas with no swelling, redness, or edema. Neck: Trachea midline, no thyromegaly or masses palpated, and no cervical lymphadenopathy. Supple, full range of motion without nuchal rigidity, or vertebral point tenderness. No Meningismus. Chest/axilla: Normal chest wall appearance and motion. Nontender with no deformity. No lesions are appreciated. Cardiovascular: Regular rate and rhythm with a normal S1 and S2. No gallops, murmurs, or rubs. Normal PMI, no JVD. No pulse deficits. Respiratory: Lungs have equal breath sounds bilaterally, clear to auscultation and percussion. No rales, rhonchi or wheezes noted. No increased work of breathing, no retractions or nasal flaring. Abdomen/GI: Soft, non-tender, with normal bowel sounds. No distension or tympany. No guarding or rebound. No evidence of tenderness throughout. Skin: Warm, dry with normal turgor. Normal color with no rashes, no lesions, and no evidence of cellulitis. MS/ Extremity: Pulses equal, no cyanosis. Neurovascular intact. Full, normal range of motion. Neuro: Awake and alert, GCS 15, oriented to person, place, time, and situation. Cranial nerves II-XII grossly intact. Motor strength 5/5 in all extremities. Sensory grossly intact. Cerebellar exam normal. Normal gait. 14:31 Psych: Behavior/mood is cooperative, Affect is flat, Judgement / Insight is impaired. Delusions/hallucinations Patient is seen talking to himself in the room loudly. He does not appear to be a threat to himself or others. He is not making any gestures of either homicidal or suicidal nature.. 15:06 ECG was reviewed by the Attending Physician. kdr Vital Signs: 10:54 BP 121 / 63; Pulse 98; Resp 20; Temp 98.7; Pulse Ox 99% on R/A; ic1 11:56 BP 124 / 96; Pulse 97; Resp 16; Pulse Ox 97% ; bp 13:08 BP 122 / 73; Pulse 90; Resp 14 S; Pulse Ox 99% on R/A; jg9 MDM: 13:01 Patient medically screened. kdr 14:31 Data reviewed: vital signs, nurses notes, lab test result(s), radiologic studies. kdr Counseling: I had a detailed discussion with the patient and/or guardian regarding: the historical points, exam findings, and any diagnostic results supporting the discharge/admit diagnosis, the presence of at least one elevated blood pressure reading (>120/80) during this emergency department visit, lab results, radiology results, the need for outpatient follow up, the need for further work-up and treatment in the hospital. 11/16 10:58 Order name: Basic Metabolic Panel; Complete Time: 13: [facility] 11/16 10:58 Order name: CBC with Diff; Complete Time: : [facility] 11/16 10:58 Order name: LFT's; Complete Time: 13: [facility] 11/16 10:58 Order name: Magnesium; Complete Time: : [facility] 11/16 10:58 Order name: NT PRO-BNP; Complete Time: : [facility] 11/16 10:58 Order name: PT-INR; Complete Time: : [facility] 11/16 10:58 Order name: Troponin HS; Complete Time: 13: [facility] 11/16 10:58 Order name: XRAY Chest (1 view); Complete Time: 13: [facility] 11/16 10:58 Order name: EKG; Complete Time: 10:58 [facility] 11/16 10:58 Order name: Cardiac monitoring; Complete Time: 11:24 [facility] 11/16 10:58 Order name: EKG - Nurse/Tech; Complete Time: : [facility] 11/16 10:58 Order name: IV Saline Lock; Complete Time: 11:24 [facility] 11/16 10:58 Order name: Labs collected and sent; Complete Time: 11: [facility] 11/16 10:58 Order name: O2 Per Protocol; Complete Time: [facility] 11/16 10:58 Order name: O2 Sat Monitoring; Complete Time: 11:24 [facility] EC:06 Rate is 71 beats/min. Rhythm is regular, Sinus Rhythm with No ectopy. SC interval is kdr normal. QRS interval is normal. QT interval is normal. No Q waves. Clinical impression: NSR w/ Non-specific ST/T Changes. Administered Medications: 11:24 Drug: Ativan (LORazepam) 1 mg Route: IVP; Site: right antecubital; bp 11:56 Follow up: Response: No adverse reaction bp Disposition Summary: 11/16/21 13:01 Discharge Ordered Location: Home kdr Problem: an acute exacerbation kdr Symptoms: have improved kdr Condition: Stable kdr Diagnosis - Chest pain, unspecified kdr - Anxiety disorder, unspecified kdr Followup: kdr - With: Melisa Haji MD - When: 2 - 3 days - Reason: If symptoms return, Further diagnostic work-up, Recheck today's complaints, Continuance of care, Re-evaluation by your physician Discharge Instructions: - Discharge Summary Sheet kdr - Nonspecific Chest Pain, Adult, Zhtq-ic-Smal kdr - Generalized Anxiety Disorder, Adult kdr Forms: - Medication Reconciliation Form kdr - Thank You Letter kdr Signatures: Dispatcher [employer] Bob Ward MD MD kdr Patricio Parker RN RN bp Nicky Matos RN RN ic1
--- NOTE | 2021-11-16 13:02 | ER ---
Nurse's Notes [facility] Name: Patricio Pearson Age: 51 yrs Sex: Male : 1970 Arrival Date: 11/16/2021 Time: 10:49 Bed 8 Private MD: Melisa Haji K Diagnosis: Chest pain, unspecified;Anxiety disorder, unspecified Presentation: 11/16 10:55 Chief complaint: Patient states: Pt c/o midline cp, sob, dizziness, and feelling faint ic1 x hours ago. Coronavirus screen: Vaccine status: Patient reports being unvaccinated. Patient reports having had a previously documented Covid positive illness. Ebola Screen: No symptoms or risks identified at this time. Initial Sepsis Screen: Does the patient meet any 2 criteria? No. Patient's initial sepsis screen is negative. Does the patient have a suspected source of infection? No. Patient's initial sepsis screen is negative. Risk Assessment: Do you want to hurt yourself or someone else? Patient reports no desire to harm self or others. 10:55 Method Of Arrival: Wheelchair ic1 10:57 Acuity: GREG 2 ic1 13:09 Onset of symptoms is unknown. jg9 Triage Assessment: 10:57 General: Appears uncomfortable, Behavior is cooperative, anxious. Pain: Complains of ic1 pain in chest. Cardiovascular: Reports chest pain, lightheadedness, shortness of breath. Historical: - Home Meds: 10:56 Xanax 2 mg Oral tab 1 tab 3 times per day [Active]; ic1 - PMHx: 10:56 Anxiety; Kidney stones; ic1 - Social history:: Smoking status: Patient reports the use of cigarette tobacco products, smokes one pack cigarettes per day. Screenin:00 Abuse screen: Denies threats or abuse. Denies injuries from another. Nutritional bp screening: No deficits noted. Tuberculosis screening: No symptoms or risk factors identified. Fall Risk None identified. Assessment: 11:00 General: SEE TRIAGE NOTE. bp 12:01 Reassessment: No changes from previously documented assessment. Patient and/or family bp updated on plan of care and expected duration. Pain level reassessed. 13:09 Pain: unk. jg9 13:10 Pain: Pain began unk. jg9 13:10 Reassessment: PT D/C HOME AMBULATORY, DX WITH GENERAL ANXIETY. bp Vital Signs: 10:54 BP 121 / 63; Pulse 98; Resp 20; Temp 98.7; Pulse Ox 99% on R/A; ic1 11:56 BP 124 / 96; Pulse 97; Resp 16; Pulse Ox 97% ; bp 13:08 BP 122 / 73; Pulse 90; Resp 14 S; Pulse Ox 99% on R/A; jg9 ED Course: 10:49 Patient arrived in ED. am2 10:50 Melisa Haji MD is Private Physician. am2 10:56 Triage completed. ic1 10:57 Bob Myers MD is Attending Physician. kdr 10:57 Arm band placed on right wrist. ic1 10:58 Patricio Parker, DEBBIE is Primary Nurse. bp 11:00 Patient has correct armband on for positive identification. Bed in low position. Call bp light in reach. Side rails up X2. 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 Pulse ox on. NIBP on. 11:20 Inserted saline lock: 20 gauge in right antecubital area, using aseptic technique. bp Blood collected. 11:21 EKG done, by ED staff. tp1 11:24 XRAY Chest (1 view) In Process Unspecified. EDMS 13:01 Melisa Haji MD is Referral Physician. kdr 13:09 No provider procedures requiring assistance completed. jg9 13:09 IV discontinued. jg9 13:09 Patient maintains SpO2 saturation greater than 95% on room air. jg9 Administered Medications: 11:24 Drug: Ativan (LORazepam) 1 mg Route: IVP; Site: right antecubital; bp 11:56 Follow up: Response: No adverse reaction bp Outcome: 13:01 Discharge ordered by . kdr 13:09 Discharged to home ambulatory. jg9 13:09 Condition: stable 13:09 Discharge instructions given to patient, Instructed on discharge instructions, Demonstrated understanding of instructions, follow-up care. 13:10 Patient left the ED. jg9 Signatures: Dispatcher [employer] EDMS Bob Myers MD MD kdr Rose Bunch am2 Patricio Parker, Nannette Mason RN tp1 Shruthi Pinto RN RN jg9 Nicky Matos RN RN ic1 Corrections: (The following items were deleted from the chart) 10:58 10:55 Acuity: GREG 3 ic1 ic1
[2021-11-16 13:22] VITALS: TEMP 98.7
[2021-11-16 13:25] VITALS: BP 122/73; O2SAT 99
== END 2021-11-16 13:10 | disposition home or self-care (01) ==
LOC: ER 10:48
DX: F41.9 Anxiety disorder, unspecified (principal); F17.210 Nicotine dependence, cigarettes, uncomplicated
CPT/HCPCS: 36415; 71045; 80048; 80076; 83735; 83880; 84484; 85025; 85610; 93005; 96374; 99285